=== PATIENT | female | born 1995 | race Caucasian/White ===

== ENCOUNTER 2017-01-14 20:17 | Emergency (ER) | payer MEDICAID ==
[2017-01-14 20:44] VITALS: BP 129/87
[2017-01-14] MEDS ORDERED: IBUPROFEN 800 MG TABLET PO ONE (20:52)
--- NOTE | 2017-01-14 20:56 | ER Document Report ---
HPI - HPI Patient complains to provider of: left ankle pain Onset: Just prior to arrival Onset/Duration: Sudden Quality of pain: Achy, Throbbing Severity: Severe Pain Level: 4 Context: She presents emergency department with complaints of left ankle pain. She reports she stepped off a step and rolled her ankle. Denies foot pain. Denies past medical history of injury to the foot. No other complaints such as fever vomiting diarrhea. Associated Symptoms: None Exacerbated by: Walking Relieved by: Denies Similar symptoms previously: No Recently seen / treated by doctor: No - REPRODUCTIVE Reproductive: DENIES: : Past Medical History - General Information source: Patient Last Menstrual Period: 12/27/2016 - Social History Smoking Status: Unknown if Ever Smoked Cigarette use (# per day): No Frequency of alcohol use: None Drug Abuse: None Family History: Reviewed & Not Pertinent, Other - Colon cancer - Past Medical History Cardiac Medical History: Pulmonary Medical History: Neurological Medical History: GI Medical History: Reports: Hx Gastroesophageal Reflux Disease Traumatic Medical History: Reports: Hx Fractures Infectious Medical History: Past Surgical History: Reports: Hx Abdominal Surgery - reconstructive intestinal surgery, Hx Appendectomy, Hx Bowel Surgery - colectomy after appendectomy, Hx Cholecystectomy, Other - Exploratory laparotomy, control of appendiceal stump leak 2000. - Immunizations Immunizations up to date: Yes Hx Diphtheria, Pertussis, Tetanus Vaccination: Yes Vertical Provider Document - CONSTITUTIONAL Agree With Documented VS: Yes Exam Limitations: No Limitations General Appearance: WD/WN, Mild Distress - Wincing when ankle touched - INFECTION CONTROL TRAVEL OUTSIDE OF THE [place] IN LAST 30 DAYS: No - HEENT HEENT: Atraumatic, Normocephalic - NECK Neck: Normal Inspection, Supple - RESPIRATORY Respiratory: Breath Sounds Normal, No Respiratory Distress O2 Sat by Pulse Oximetry: 100 - CARDIOVASCULAR Cardiovascular: Regular Rate - MUSCULOSKELETAL/EXTREMETIES Musculoskeletal/Extremeties: Tender - Left lateral ankle tender to palpation no obvious deformity slight swelling good pedal pulse and brisk cap refill. - NEURO Level of Consciousness: Awake, Alert, Appropriate Motor/Sensory: No Motor Deficit - DERM Integumentary: Warm, Dry Adult Front & Back Diagram: 1 - Complains of pain Course - Re-evaluation Re-evalutation: 01/14/17 20:55 Patient provided with Motrin for pain and took to x-ray. 01/14/17 22:10 She instructed on negative x-ray Emmanuel wrap and crutches. motrin for the pain - Vital Signs Vital signs: Temp Pulse Resp BP Pulse Ox 97.8 F 85 129/87 H 100 01/14/17 20:41 01/14/17 20:41 01/14/17 20:41 01/14/17 20:41 - Diagnostic Test Radiology reviewed: Image reviewed, Reports reviewed - IMPRESSION: NO RADIOGRAPHIC EVIDENCE OF ACUTE INJURY. Procedures - Immobilization Left Ankle Pre-Proc Neuro Vasc Exam: Normal Immobilizer type: Emmanuel wrap Performed by: RN Post-Proc Neuro Vasc Exam: Unchanged from pre-exam Discharge - Discharge Clinical Impression: Elevated blood pressure reading Ankle pain, left Qualifiers: Chronicity: acute Qualified Code(s): M25.572 - Pain in left ankle and joints of left foot Condition: Stable Disposition: HOME, SELF-CARE Instructions: Use of Crutches ([facility]), Use of Aerv-Pqa-Idbxuyv Ibuprofen ([facility]), Ice & Elevation ([facility]), Emmanuel Wrap ([facility]) Additional Instructions: *You have been evaluated for left ankle pain *Maintain the splint and use the crutches for the next three days *Rest/Ice/Elevate *Follow up with orthopedics for continued pain-call for an appointment *Take ibuprofen as indicated *Monitor your blood pressure. Your blood pressure was elevated today. This may be because you were anxious, in pain or because you need medication. It is important to follow up with your primary care provider for full evaluation. *Return to ED for worsening condition, changes, needs Forms: Elevated Blood Pressure, Return to Work
== END 2017-01-14 22:18 | disposition home or self-care (01) ==
LOC: ER 20:17
DX: M25.572 Pain in left ankle and joints of left foot (principal); M25.472 Effusion, left ankle; X50.0XXA Overexertion from strenuous movement or load, initial encounter; R03.0 Elevated blood-pressure reading, without diagnosis of hypertension
CPT/HCPCS: 99283; 73610; J3490

== ENCOUNTER 2017-04-24 10:32 | Emergency (ER) | payer SELFPAY ==
[2017-04-24] MEDS ORDERED: ONDANSETRON 4 MG TAB.RAPDIS PO ONE (11:01)
[2017-04-24] MEDS ORDERED: HYDROCODONE/ACETAMINOPHEN 5-325 MG TABLET PO ONE (11:01)
--- NOTE | 2017-04-24 11:03 | ER Document Report ---
ED Medical Screen (RME) - General Chief Complaint: Abdominal Pain Stated Complaint: ABDOMINAL PAIN Time Seen by Provider: 04/24/17 10:56 Mode of Arrival: Wheelchair Information source: Patient Notes: Patient presents to the emergency department with left quad abdominal pain. Patient reports pain started a few days ago. She got off work early this morning , tried to sleep but was unable to due to increased pain. She has history of jenny, appendectomy and intestinal resection after the appy. Patient points out swelling to the left quad of her abdomen. TRAVEL OUTSIDE OF THE [place] IN LAST 30 DAYS: No - Related Data Allergies/Adverse Reactions: hydromorphone HCl [From Dilaudid] Allergy (Verified 04/24/17 10:34) difficulty breathing and rash Past Medical History - Past Medical History Cardiac Medical History: Pulmonary Medical History: Neurological Medical History: Renal/ Medical History: Denies: Hx Peritoneal Dialysis GI Medical History: Reports: Hx Gastroesophageal Reflux Disease Traumatic Medical History: Reports: Hx Fractures Infectious Medical History: Past Surgical History: Reports: Hx Abdominal Surgery - reconstructive intestinal surgery, Hx Appendectomy, Hx Bowel Surgery - colectomy after appendectomy, Hx Cholecystectomy, Other - Exploratory laparotomy, control of appendiceal stump leak 2000. - Immunizations Immunizations up to date: Yes Hx Diphtheria, Pertussis, Tetanus Vaccination: Yes Physical Exam - Vital signs Vitals: Temp Pulse Resp BP Pulse Ox 97.7 F 89 16 134/82 H 100 04/24/17 10:34 04/24/17 10:34 04/24/17 10:34 04/24/17 10:34 04/24/17 10:34 Course - Vital Signs Vital signs: Temp Pulse Resp BP Pulse Ox 97.7 F 89 16 134/82 H 100 04/24/17 10:34 04/24/17 10:34 04/24/17 10:34 04/24/17 10:34 04/24/17 10:34
[2017-04-24 12:45] LABS: APPEARANCE,URINE CLEAR; BILIRUBIN,URINE NEGATIVE (NEGATIVE); GLUCOSE, URINE NEGATIVE (NEGATIVE); KETONES,URINE NEGATIVE (NEGATIVE); LEUKOCYTE ESTERASE,URINE NEGATIVE (NEGATIVE); NITRITE,URINE NEGATIVE (NEGATIVE); PROTEIN,URINE NEGATIVE (NEGATIVE); URINE SPECIFIC GRAVITY 1.012; UROBILINOGEN,URINE NEGATIVE mg/dL (<2.0)
[2017-04-24 12:55] LABS: ABSOLUTE EOSINOPHILS # (AUTO) 0.3 10^3/uL (0.0-0.6); ABSOLUTE LYMPHOCYTES (AUTO) 2.7 10^3/uL (0.5-4.7); ABSOLUTE MONOCYTES (AUTO) 0.5 10^3/uL (0.1-1.4); ABSOLUTE NEUT (AUTO) 6.9 10^3/uL (1.7-8.2); BASOPHILS % (AUTO) 0.5 % (0-2); EOSINOPHILS % (AUTO) 2.5 % (0-6); HEMATOCRIT 38.6 % (36.0-47.0); HEMOGLOBIN 12.6 g/dL (12.0-15.5); HGB HCT DIFFERENCE -0.8; LYMPHOCYTES % (AUTO) 25.9 % (13-45); MEAN CORPUSCULAR HEMOGLOBIN 27.2 pg (27.0-33.4); MEAN CORPUSCULAR HGB CONC 32.5 g/dL (32.0-36.0); MEAN CORPUSCULAR VOLUME 84 fl (80-97); RED BLOOD COUNT 4.62 10^6/uL (3.72-5.28); RED CELL DISTRIBUTION WIDTH 13.7 % (11.5-14.0); SEGMENTED NEUTROPHILS % (AUTO) 66.1 % (42-78); WHITE BLOOD COUNT 10.5 10^3/uL (4.0-10.5)
[2017-04-24 13:20] LABS: ALANINE AMINOTRANSFERASE 35 U/L (9-52); ALBUMIN 4.5 g/dL (3.5-5.0); ALKALINE PHOSPHATASE 83 U/L (38-126); ANION GAP 14 (5-19); ASPARTATE AMINO TRANSFERASE 27 U/L (14-36); BILIRUBIN,DIRECT 0.3 mg/dL (0.0-0.4); BILIRUBIN,TOTAL 0.5 mg/dL (0.2-1.3); BLOOD UREA NITROGEN 11 mg/dL (7-20); CALCIUM 9.9 mg/dL (8.4-10.2); CARBON DIOXIDE 22 mmol/L (22-30); CHLORIDE 105 mmol/L (98-107); CREATININE RESULT 0.74 mg/dL (0.52-1.25); GLUCOSE 89 mg/dL (75-110); POTASSIUM 4.6 mmol/L (3.6-5.0); SODIUM 140.5 mmol/L (137-145); TOTAL PROTEIN 8.1 g/dL (6.3-8.2)
[2017-04-24] MEDS ORDERED: ONDANSETRON HCL INJ/PF 4 MG/2 ML SDV IV ONE (15:05)
[2017-04-24] MEDS ORDERED: NORMAL SALINE 1000 ML 1,000 ML IV PRN (15:05)
[2017-04-24] MEDS ORDERED: KETOROLAC TROMETHAMINE INJ/PF 30 MG/1 ML SDV IV ONE (15:05)
--- NOTE | 2017-04-24 15:08 | ER Document Report ---
ED GI/ - General Chief Complaint: Abdominal Pain Stated Complaint: ABDOMINAL PAIN Time Seen by Provider: 04/24/17 10:56 Mode of Arrival: Wheelchair Information source: Patient TRAVEL OUTSIDE OF THE [place] IN LAST 30 DAYS: No - HPI Patient complains to provider of: Abdominal pain Onset: This morning Timing/Duration: Sudden Quality of pain: Achy, Cramping Severity at maximum: Moderate Severity in ED: Moderate Pain Level: 3 Location: Epigastric, LUQ Associated symptoms: Nausea Exacerbated by: Denies Relieved by: Denies Similar symptoms previously: No Recently seen / treated by doctor: No Notes: 04/24/17 15:06 Patient is a 22-year-old female who presents to the emergency room complaining of epigastric and left upper quadrant abdominal pain that has been going on since she woke up this morning, states it feels swollen in her epigastric and left upper quadrant region, pain is associated with nausea vomiting or diarrhea , her last movement was yesterday and normal, she denies any sick contacts, no recent questionable food intake, she does have a history of a cholecystectomy, appendectomy and bowel resection after appendectomy, - Related Data Allergies/Adverse Reactions: hydromorphone HCl [From Dilaudid] Allergy (Verified 04/24/17 10:34) difficulty breathing and rash Past Medical History - General Information source: Patient - Social History Smoking Status: Never Smoker Chew tobacco use (# tins/day): No Frequency of alcohol use: None Drug Abuse: None Family History: Reviewed & Not Pertinent, Other - Colon cancer Patient has suicidal ideation: No Patient has homicidal ideation: No - Past Medical History Cardiac Medical History: Pulmonary Medical History: Neurological Medical History: Renal/ Medical History: Denies: Hx Peritoneal Dialysis GI Medical History: Reports: Hx Gastroesophageal Reflux Disease Traumatic Medical History: Reports: Hx Fractures Infectious Medical History: Past Surgical History: Reports: Hx Abdominal Surgery - reconstructive intestinal surgery, Hx Appendectomy, Hx Bowel Surgery - colectomy after appendectomy, Hx Cholecystectomy, Other - Exploratory laparotomy, control of appendiceal stump leak 2000. - Immunizations Immunizations up to date: Yes Hx Diphtheria, Pertussis, Tetanus Vaccination: Yes Review of Systems - Review of Systems Constitutional: No symptoms reported EENT: No symptoms reported Cardiovascular: No symptoms reported Respiratory: No symptoms reported Gastrointestinal: See HPI Genitourinary: No symptoms reported Female Genitourinary: No symptoms reported Musculoskeletal: No symptoms reported Skin: No symptoms reported Hematologic/Lymphatic: No symptoms reported Neurological/Psychological: No symptoms reported -: Yes All other systems reviewed and negative Physical Exam - Vital signs Vitals: Temp Pulse Resp BP Pulse Ox 97.7 F 89 16 134/82 H 100 04/24/17 10:34 04/24/17 10:34 04/24/17 10:34 04/24/17 10:34 04/24/17 10:34 Interpretation: Normal - General General appearance: Appears well, Alert - HEENT Head: Normocephalic, Atraumatic Eyes: Normal Pupils: PERRL - Respiratory Respiratory status: No respiratory distress Chest status: Nontender Breath sounds: Normal Chest palpation: Normal - Cardiovascular Rhythm: Regular Heart sounds: Normal auscultation Murmur: No - Abdominal Inspection: Normal Distension: No distension Bowel sounds: Normal Tenderness: Tender - epigastric and left upper quadrant tenderness on palpation Organomegaly: No organomegaly - Back Back: Normal, Nontender - Extremities General upper extremity: Normal inspection, Nontender, Normal color, Normal ROM , Normal temperature General lower extremity: Normal inspection, Nontender, Normal color, Normal ROM , Normal temperature, Normal weight bearing. No: Stephanie's sign - Neurological Neuro grossly intact: Yes Cognition: Normal Orientation: AAOx4 [place] Coma Scale Eye Opening: Spontaneous Patti Coma Scale Verbal: Oriented Patti Coma Scale Motor: Obeys Commands [place] Coma Scale Total: 15 Speech: Normal Motor strength normal: LUE, RUE, LLE, RLE Sensory: Normal - Psychological Associated symptoms: Normal affect, Normal mood - Skin Skin Temperature: Warm Skin Moisture: Dry Skin Color: Normal Course - Re-evaluation Re-evalutation: 04/24/17 22:26 Lab and imaging findings were discussed with patient at bedside which are unremarkable, patient was provided with prescriptions for several medications and information for follow-up, was advised to return if symptoms worsen, patient acknowledges understanding and agreement with this plan - Vital Signs Vital signs: Temp Pulse Resp BP Pulse Ox 97.9 F 87 16 126/56 H 97 04/24/17 17:03 04/24/17 17:01 04/24/17 17:01 04/24/17 17:01 04/24/17 17:01 - Laboratory Result Diagrams: 04/24/17 12:28 04/24/17 12:28 Laboratory results interpreted by me: 04/24/17 11:00 Urine Blood SMALL H - Diagnostic Test Radiology reviewed: Image reviewed, Reports reviewed Discharge - Discharge Clinical Impression: Abdominal pain Qualifiers: Abdominal location: upper abdomen, unspecified Qualified Code(s): R10.10 - Upper abdominal pain, unspecified Condition: Stable Disposition: HOME, SELF-CARE Instructions: Abdominal Pain ([facility]) Additional Instructions: Follow up with your primary care provider in one to 2 days. Return to the emergency room immediately if symptoms worsen or any additional concerns. Prescriptions: Famotidine [Pepcid 20 mg Tablet] 20 mg PO BID #12 tablet Hydrocodone/Acetaminophen [Hydrocodon-Acetaminophen 5-325] 1 each PO Q6 #10 tablet Ondansetron HCl [Zofran 4 mg Tablet] 1 - 2 tab PO Q4H PRN #10 tablet PRN Reason: Forms: Return to Work Referrals: LUIZA THOMAS CNM [Primary Care Provider] - Follow up as needed
--- NOTE | 2017-04-24 15:37 | RADIOLOGY REPORT (SQ) ---
EXAM DESCRIPTION: U/S ABDOMEN LIMITED W/O DOP COMPLETED DATE/TIME: 04/24/2017 2:03 pm REASON FOR STUDY: abd pain, swelling, hernia? COMPARISON: None. TECHNIQUE: Dynamic and static grayscale images acquired of the abdomen and recorded on PACS. Additio nal selected color Doppler and spectral images recorded. LIMITATIONS: None. FINDINGS: Limited sonographic imaging was performed of the area of the incision for the patient's pr ior cholecystectomy. This is above the umbilicus. No incisional hernia was identified. No fluid co llections were present. IMPRESSION: Normal limited ultrasound. TECHNICAL DOCUMENTATION: JOB ID: [id number] [employer]- All Rights Reserved
--- NOTE | 2017-04-24 16:30 | RADIOLOGY REPORT (SQ) ---
EXAM DESCRIPTION: CT ABD/PELVIS WITH IV ONLY COMPLETED DATE/TIME: 04/24/2017 3:48 pm REASON FOR STUDY: abd pain COMPARISON: None. TECHNIQUE: CT scan of the abdomen and pelvis performed using helical scanning technique with dynamic intravenous contrast injection. No oral contrast. Images reviewed with lung, soft tissue, and bone windows. Reconstructed coronal and sagittal MPR images reviewed. Delayed images for evaluation of the urinary system also acquired. All images stored on PACS. All CT scanners at this facility use dose modulation, iterative reconstruction, and/or weight based d osing when appropriate to reduce radiation dose to as low as reasonably achievable (ALARA). [facility]: Dose Right [facility]: CareDose [facility]: Dose Right [facility]: Teradose 4D [facility]: Architurn CONTRAST TYPE AND DOSE: 100mL Isovue 370- low osmolar. RENAL FUNCTION: Creatinine 0.7 BUN 11 RADIATION DOSE: 40.98mGy. LIMITATIONS: None. FINDINGS: LOWER CHEST: No significant findings. No nodules or infiltrates. LIVER: Normal size. No masses or dilated ducts. SPLEEN: Normal size. No focal lesions. PANCREAS: No masses. No significant calcifications. No adjacent inflammation or peripancreatic fluid collections. Pancreatic duct not dilated. GALLBLADDER: Surgically absent. ADRENAL GLANDS: No significant masses or asymmetry. RIGHT KIDNEY AND URETER: No solid masses. No significant calcifications. No hydronephrosis or hyd roureter. LEFT KIDNEY AND URETER: No solid masses. No significant calcifications. No hydronephrosis or hydr oureter. AORTA AND VESSELS: No aneurysm. No dissection. Renal arteries, SMA, celiac without stenosis. RETROPERITONEUM: No retroperitoneal adenopathy, hemorrhage or masses. BOWEL AND PERITONEAL CAVITY: No masses or inflammatory changes. No free fluid or peritoneal masses. APPENDIX: Surgically absent. PELVIS: No mass or free fluid. Normal bladder. ABDOMINAL WALL: No masses. No hernias. BONES: No significant or acute findings. OTHER: No other significant finding. IMPRESSION: NO SIGNIFICANT OR ACUTE FINDING IN THE ABDOMEN OR PELVIS ON CT SCAN WITH IV CONTRAST. TECHNICAL DOCUMENTATION: JOB ID: [id number] Quality ID # [id number]: Final reports with documentation of one or more dose reduction techniques (e.g., Au tomated exposure control, adjustment of the mA and/or kV according to patient size, use of iterative reconstruction technique) 2010 [employer]- All Rights Reserved
[2017-04-24 17:04] VITALS: BP 126/56
== END 2017-04-24 17:17 | disposition home or self-care (01) ==
LOC: ER 10:32
DX: R10.10 Upper abdominal pain, unspecified (principal); R10.13 Epigastric pain; Z90.49 Acquired absence of other specified parts of digestive tract
CPT/HCPCS: 99284; 96361; 96374; 96375; 36415; 83690; 84703; 85025; 80053; 81001; 76705; 74177; S0119; J1885; J2405; J7030

== ENCOUNTER 2017-06-08 16:00 | Emergency (ER) | payer SELFPAY ==
[2017-06-08 16:11] VITALS: BP 131/79
--- NOTE | 2017-06-08 16:49 | ER Document Report ---
HPI - HPI Pain Level: 3 Context: 22 yo healthy female c/o itchy, scratchy throat, cough x 3-4 days. has felt dizzy and fatigue Associated Symptoms: Allergy/hay fever, Nonproductive cough Exacerbated by: Denies Relieved by: Denies Similar symptoms previously: No Recently seen / treated by doctor: No - REPRODUCTIVE Reproductive: DENIES: : - DERM Skin Color: Normal Past Medical History - General Information source: Patient - Social History Smoking Status: Never Smoker Frequency of alcohol use: None Drug Abuse: None Lives with: Family Family History: Reviewed & Not Pertinent, Other - Colon cancer - Medical History Medical History: Negative - Past Medical History Cardiac Medical History: Pulmonary Medical History: Neurological Medical History: Renal/ Medical History: Denies: Hx Peritoneal Dialysis GI Medical History: Reports: Hx Gastroesophageal Reflux Disease Traumatic Medical History: Reports: Hx Fractures Infectious Medical History: Past Surgical History: Reports: Hx Abdominal Surgery - reconstructive intestinal surgery, Hx Appendectomy, Hx Bowel Surgery - colectomy after appendectomy, Hx Cholecystectomy, Other - Exploratory laparotomy, control of appendiceal stump leak 2000. - Immunizations Immunizations up to date: Yes Hx Diphtheria, Pertussis, Tetanus Vaccination: Yes Vertical Provider Document - CONSTITUTIONAL Agree With Documented VS: Yes Exam Limitations: No Limitations General Appearance: WD/WN, No Apparent Distress - INFECTION CONTROL TRAVEL OUTSIDE OF THE [place] IN LAST 30 DAYS: No - HEENT HEENT: Atraumatic, Pharyngeal Tenderness, Pharyngeal Erythema. negative: Pharyngeal Exudate - NECK Neck: Normal Inspection, Supple - RESPIRATORY Respiratory: Breath Sounds Normal, No Respiratory Distress O2 Sat by Pulse Oximetry: 100 - CARDIOVASCULAR Cardiovascular: Regular Rate, Regular Rhythm - GI/ABDOMEN Gastrointestinal: Abdomen Soft, Abdomen Non-Tender - BACK Back: Normal Inspection - MUSCULOSKELETAL/EXTREMETIES Musculoskeletal/Extremeties: MARISOL LEE - NEURO Level of Consciousness: Awake, Alert, Appropriate - DERM Integumentary: Warm, Dry Course - Re-evaluation Re-evalutation: 06/08/17 16:49 H&P c/w allergic rhinitis and viral illness. pt is hemodynamically stable. stable for discharge and follow up with primary care. pt agreeable with plan - Vital Signs Vital signs: Temp Pulse Resp BP Pulse Ox 97.6 F 87 16 131/79 H 100 06/08/17 16:06 06/08/17 16:06 06/08/17 16:06 06/08/17 16:06 06/08/17 16:06 Discharge - Discharge Clinical Impression: Viral illness Allergic rhinitis Qualifiers: Chronicity: acute Allergic rhinitis seasonality: unspecified seasonality Condition: Stable Disposition: HOME, SELF-CARE Instructions: Use of Diphenhydramine, Nasal Corticosteroid Inhaler ([facility]), Hay Fever ([facility]), Sore Throat ([facility]), Viral Syndrome ([facility]) Additional Instructions: Your history and physical are consistent with allergic rhinitis and viral illness take medications as directed follow up with primary care if symptoms persist Prescriptions: Benzonatate [Tessalon Perle 100 mg Capsule] 200 mg PO Q8HP PRN #40 cap PRN Reason: Fluticasone Propionate [Flonase Allergy Relief] 2 spr NS DAILY #1 bottle Forms: Return to Work
== END 2017-06-08 17:08 | disposition home or self-care (01) ==
LOC: ER 16:00
DX: J30.9 Allergic rhinitis, unspecified (principal); B34.9 Viral infection, unspecified; J30.1 Allergic rhinitis due to pollen; R42 Dizziness and giddiness; R53.83 Other fatigue; R05 Cough
CPT/HCPCS: 99282

== ENCOUNTER 2017-06-27 12:28 | Emergency (ER) | payer SELFPAY ==
[2017-06-27 12:34] VITALS: BP 130/83
--- NOTE | 2017-06-27 12:44 | ER Document Report ---
ED Medical Screen (RME) - General Chief Complaint: Vaginal Bleeding Stated Complaint: ABDOMINAL PAIN Time Seen by Provider: 06/27/17 12:42 Mode of Arrival: Ambulatory Information source: Patient Notes: This is a 22-year-old female who is 4 para 2 (1 miscarriage in the past) , positive home test 2 weeks ago who presents to the emergency room with acute development of vaginal bleeding, abdominal cramping and pain. Patient's symptoms started at 3 AM. Allergies: Dilaudid Medicines: None Past surgical history: Appendectomy, cholecystectomy, partial bowel resection ( complication of the appendicitis) Obstetric history gravida4 para 2, blood type Rh- (has received RhoGam in the past) TRAVEL OUTSIDE OF THE [place] IN LAST 30 DAYS: No - Related Data Allergies/Adverse Reactions: hydromorphone HCl [From Dilaudid] Allergy (Verified 06/27/17 12:34) difficulty breathing and rash Past Medical History - Past Medical History Cardiac Medical History: Pulmonary Medical History: Neurological Medical History: Renal/ Medical History: Denies: Hx Peritoneal Dialysis GI Medical History: Reports: Hx Gastroesophageal Reflux Disease Traumatic Medical History: Reports: Hx Fractures Infectious Medical History: Past Surgical History: Reports: Hx Abdominal Surgery - reconstructive intestinal surgery, Hx Appendectomy, Hx Bowel Surgery - colectomy after appendectomy, Hx Cholecystectomy, Other - Exploratory laparotomy, control of appendiceal stump leak 2000. - Immunizations Immunizations up to date: Yes Hx Diphtheria, Pertussis, Tetanus Vaccination: Yes Physical Exam - Vital signs Vitals: Temp Pulse Resp BP Pulse Ox 98.2 F 88 16 130/83 H 100 06/27/17 12:31 06/27/17 12:31 06/27/17 12:31 06/27/17 12:31 06/27/17 12:31 Course - Vital Signs Vital signs: Temp Pulse Resp BP Pulse Ox 98.2 F 88 16 130/83 H 100 06/27/17 12:31 06/27/17 12:31 06/27/17 12:31 06/27/17 12:31 06/27/17 12:31
[2017-06-27] MEDS ORDERED: ACETAMINOPHEN 325 MG TABLET PO ONE (13:41)
--- NOTE | 2017-06-27 13:42 | ER Document Report ---
ED GI/ - General Chief Complaint: Vaginal Bleeding Stated Complaint: ABDOMINAL PAIN Time Seen by Provider: 06/27/17 12:42 Mode of Arrival: Ambulatory Notes: 22-year-old female complaining of pain since over 0300. She woke up at 0700 vaginal bleeding. She had a positive home test 2 weeks ago, LMP April 8. . TRAVEL OUTSIDE OF THE [place] IN LAST 30 DAYS: No - Related Data Allergies/Adverse Reactions: hydromorphone HCl [From Dilaudid] Allergy (Verified 06/27/17 12:34) difficulty breathing and rash Past Medical History - General Information source: Patient Last Menstrual Period: 05/01/2017 - Social History Smoking Status: Never Smoker Chew tobacco use (# tins/day): No Frequency of alcohol use: None Drug Abuse: None Family History: Reviewed & Not Pertinent, Other - Colon cancer - Past Medical History Cardiac Medical History: Pulmonary Medical History: Neurological Medical History: Renal/ Medical History: Denies: Hx Peritoneal Dialysis GI Medical History: Reports: Hx Gastroesophageal Reflux Disease Traumatic Medical History: Reports: Hx Fractures Infectious Medical History: Past Surgical History: Reports: Hx Abdominal Surgery - reconstructive intestinal surgery, Hx Appendectomy, Hx Bowel Surgery - colectomy after appendectomy, Hx Cholecystectomy, Other - Exploratory laparotomy, control of appendiceal stump leak 2000. - Immunizations Immunizations up to date: Yes Hx Diphtheria, Pertussis, Tetanus Vaccination: Yes Review of Systems - Review of Systems Constitutional: No symptoms reported EENT: No symptoms reported Cardiovascular: No symptoms reported Respiratory: No symptoms reported Gastrointestinal: No symptoms reported Genitourinary: No symptoms reported Female Genitourinary: See HPI Musculoskeletal: No symptoms reported Skin: No symptoms reported Hematologic/Lymphatic: No symptoms reported Neurological/Psychological: No symptoms reported Physical Exam - Vital signs Vitals: Temp Pulse Resp BP Pulse Ox 98.2 F 88 16 130/83 H 100 06/27/17 12:31 06/27/17 12:31 06/27/17 12:31 06/27/17 12:31 06/27/17 12:31 Interpretation: Normal - General General appearance: Appears well, Alert - HEENT Head: Normocephalic, Atraumatic Eyes: Normal Pupils: PERRL Neck: Supple. No: Lymphadenopathy, Thyromegally - Respiratory Respiratory status: No respiratory distress Chest status: Nontender Breath sounds: Normal Chest palpation: Normal - Cardiovascular Rhythm: Regular Heart sounds: Normal auscultation Murmur: No - Abdominal Inspection: Normal Distension: No distension Bowel sounds: Normal Tenderness: Nontender. No: Tender Organomegaly: No organomegaly - Back Back: Normal, Nontender. No: CVA tenderness - Extremities General upper extremity: Normal inspection, Nontender, Normal color, Normal ROM , Normal temperature General lower extremity: Normal inspection, Nontender, Normal color, Normal ROM , Normal temperature, Normal weight bearing. No: Stephanie's sign - Neurological Neuro grossly intact: Yes Cognition: Normal Orientation: AAOx4 Patti Coma Scale Eye Opening: Spontaneous [place] Coma Scale Verbal: Oriented Patti Coma Scale Motor: Obeys Commands Patti Coma Scale Total: 15 Speech: Normal Motor strength normal: LUE, RUE, LLE, RLE Sensory: Normal - Psychological Associated symptoms: Normal affect, Normal mood - Skin Skin Temperature: Warm Skin Moisture: Dry Skin Color: Normal Course - Re-evaluation Re-evalutation: 06/27/17 15:24 test is negative, other labs OK. explained this to pt that she was not . - Vital Signs Vital signs: Temp Pulse Resp BP Pulse Ox 98.2 F 88 12 130/83 H 100 06/27/17 12:31 06/27/17 12:31 06/27/17 12:38 06/27/17 12:31 06/27/17 12:31 - Laboratory Result Diagrams: 06/27/17 14:13 06/27/17 14:13 Laboratory results interpreted by me: 06/27/17 14:13 RDW 14.5 H Discharge - Discharge Clinical Impression: Vaginal bleeding, Pelvic cramping Condition: Good Disposition: HOME, SELF-CARE Instructions: Vaginal Bleeding ([facility]) Additional Instructions: see the health department as planned copy of labs given to you to er any concerns Please complete the patient satisfaction survey if you get one, and return it.. If you do not receive a survey, then you can go to the [facility] website, [email or web address] and place your comments about your very good care. Thank you very much. It was a pleasure being your medical provider today. Referrals: LUIZA THOMAS CNM [Primary Care Provider] - Follow up as needed
[2017-06-27 14:30] LABS: ABSOLUTE EOSINOPHILS # (AUTO) 0.1 10^3/uL (0.0-0.6); ABSOLUTE LYMPHOCYTES (AUTO) 2.8 10^3/uL (0.5-4.7); ABSOLUTE MONOCYTES (AUTO) 0.7 10^3/uL (0.1-1.4); EOSINOPHILS % (AUTO) 1.3 % (0-6)
[2017-06-27 14:32] LABS: ABSOLUTE NEUT (AUTO) 5.4 10^3/uL (1.7-8.2); BASOPHILS % (AUTO) 0.5 % (0-2); HEMATOCRIT 37.1 % (36.0-47.0); HEMOGLOBIN 12.3 g/dL (12.0-15.5); HGB HCT DIFFERENCE -0.2; LYMPHOCYTES % (AUTO) 31.2 % (13-45); MEAN CORPUSCULAR HEMOGLOBIN 27.8 pg (27.0-33.4); MEAN CORPUSCULAR HGB CONC 33.1 g/dL (32.0-36.0); MEAN CORPUSCULAR VOLUME 84 fl (80-97); MONOCYTES % (AUTO) 7.3 % (3-13); RED BLOOD COUNT 4.41 10^6/uL (3.72-5.28); RED CELL DISTRIBUTION WIDTH 14.5 % (11.5-14.0); SEGMENTED NEUTROPHILS % (AUTO) 59.7 % (42-78); WHITE BLOOD COUNT 9.1 10^3/uL (4.0-10.5)
[2017-06-27 14:45] LABS: ALANINE AMINOTRANSFERASE 35 U/L (9-52); ALBUMIN 4.4 g/dL (3.5-5.0); ALKALINE PHOSPHATASE 82 U/L (38-126); ANION GAP 12 (5-19); ASPARTATE AMINO TRANSFERASE 31 U/L (14-36); BILIRUBIN,DIRECT 0.3 mg/dL (0.0-0.4); BILIRUBIN,TOTAL 0.4 mg/dL (0.2-1.3); BLOOD UREA NITROGEN 8 mg/dL (7-20); CALCIUM 9.2 mg/dL (8.4-10.2); CARBON DIOXIDE 23 mmol/L (22-30); CHLORIDE 106 mmol/L (98-107); CREATININE RESULT 0.67 mg/dL (0.52-1.25); GLUCOSE 95 mg/dL (75-110); POTASSIUM 4.1 mmol/L (3.6-5.0); SODIUM 140.8 mmol/L (137-145); TOTAL PROTEIN 7.8 g/dL (6.3-8.2)
== END 2017-06-27 15:36 | disposition home or self-care (01) ==
LOC: ER 12:28
DX: N93.9 Abnormal uterine and vaginal bleeding, unspecified (principal); R10.2 Pelvic and perineal pain; Z32.02 Encounter for pregnancy test, result negative; Z90.49 Acquired absence of other specified parts of digestive tract; Z88.5 Allergy status to narcotic agent
CPT/HCPCS: 36415; 80053; 84702; 85025; 86900; 86901; 99284

== ENCOUNTER 2018-06-22 11:45 | Emergency (ER) | payer MEDICAID ==
[2018-06-22] MEDS ORDERED: ONDANSETRON 4 MG TAB.RAPDIS PO ONE (11:59)
[2018-06-22] MEDS ORDERED: NORMAL SALINE 1000 ML 1,000 ML IV PRN (11:59)
[2018-06-22] MEDS ORDERED: FENTANYL CITRATE INJ/PF 100 MCG/2 ML AMPUL IV ONE (11:59)
--- NOTE | 2018-06-22 12:01 | ER Document Report ---
ED Medical Screen (RME) - General Chief Complaint: Vag Bleeding, +preg <12wks Stated Complaint: ABDOMINAL PAIN, VAGINAL BLEEDING Time Seen by Provider: 06/22/18 11:58 Notes: 23 years old female who is 10 weeks presents today with lower abdominal pain and cramps since this morning. And also started bleeding per vagina. She has 4 pregnancies, one miscarriage to live . Denies any fever chills but had nausea no vomiting. Denies any diarrhea dysuria frequency urgency. TRAVEL OUTSIDE OF THE [place] IN LAST 30 DAYS: No - Related Data Allergies/Adverse Reactions: hydromorphone HCl [From Dilaudid] Allergy (Verified 06/22/18 11:45) difficulty breathing and rash Past Medical History - Social History Chew tobacco use (# tins/day): No Frequency of alcohol use: None Drug Abuse: None - Past Medical History Cardiac Medical History: Pulmonary Medical History: Neurological Medical History: Renal/ Medical History: Denies: Hx Peritoneal Dialysis GI Medical History: Reports: Hx Gastroesophageal Reflux Disease Traumatic Medical History: Reports: Hx Fractures Infectious Medical History: Past Surgical History: Reports: Hx Abdominal Surgery - reconstructive intestinal surgery, Hx Appendectomy, Hx Bowel Surgery - colectomy after appendectomy, Hx Cholecystectomy, Other - Exploratory laparotomy, control of appendiceal stump leak 2000. - Immunizations Immunizations up to date: Yes Hx Diphtheria, Pertussis, Tetanus Vaccination: Yes Physical Exam - Vital signs Vitals: Temp Pulse Resp BP Pulse Ox 97.9 F 86 16 136/78 H 98 06/22/18 11:49 06/22/18 11:49 06/22/18 11:49 06/22/18 11:49 06/22/18 11:49 Course - Vital Signs Vital signs: Temp Pulse Resp BP Pulse Ox 97.9 F 86 16 136/78 H 98 06/22/18 11:49 06/22/18 11:49 06/22/18 11:49 06/22/18 11:49 06/22/18 11:49 Doctor's Discharge - Discharge Referrals: LUIZA THOMAS CNM [Primary Care Provider] - Follow up as needed
--- NOTE | 2018-06-22 12:19 | ER Document Report ---
ED GI/ - General Chief Complaint: Vag Bleeding, +preg <12wks Stated Complaint: ABDOMINAL PAIN, VAGINAL BLEEDING Time Seen by Provider: 06/22/18 11:58 Mode of Arrival: Ambulatory Information source: Patient Notes: 23-year-old is complaining of vaginal spotting last night. She only noticed it when she wiped after urination. She also is complaining of left flank pain and suprapubic cramping. She is seen the health department but not had an ultrasound yet. Thinks she is 10 weeks . She knows that she is Rh-. She has been vomiting for a week. No symptoms of a urinary tract infection. No fever or chills. TRAVEL OUTSIDE OF THE [place] IN LAST 30 DAYS: No - Related Data Allergies/Adverse Reactions: hydromorphone HCl [From Dilaudid] Allergy (Verified 06/22/18 11:45) difficulty breathing and rash Past Medical History - General Information source: Patient - Social History Smoking Status: Never Smoker Chew tobacco use (# tins/day): No Frequency of alcohol use: None Drug Abuse: None Lives with: Family Family History: Reviewed & Not Pertinent, Other - Colon cancer Patient has suicidal ideation: No Patient has homicidal ideation: No - Medical History Notes: Obese - Past Medical History Cardiac Medical History: Pulmonary Medical History: Neurological Medical History: Renal/ Medical History: Denies: Hx Peritoneal Dialysis GI Medical History: Reports: Hx Gastroesophageal Reflux Disease Traumatic Medical History: Reports: Hx Fractures Infectious Medical History: Past Surgical History: Reports: Hx Abdominal Surgery - reconstructive intestinal surgery, Hx Appendectomy, Hx Bowel Surgery - colectomy after appendectomy, Hx Cholecystectomy, Other - Exploratory laparotomy, control of appendiceal stump leak 2000. - Immunizations Immunizations up to date: Yes Hx Diphtheria, Pertussis, Tetanus Vaccination: Yes Review of Systems - Review of Systems Constitutional: No symptoms reported EENT: No symptoms reported Cardiovascular: No symptoms reported Respiratory: No symptoms reported Gastrointestinal: No symptoms reported Genitourinary: No symptoms reported Female Genitourinary: See HPI Musculoskeletal: No symptoms reported Skin: No symptoms reported Hematologic/Lymphatic: No symptoms reported Neurological/Psychological: No symptoms reported Physical Exam - Vital signs Vitals: Temp Pulse Resp BP Pulse Ox 97.9 F 86 16 136/78 H 98 06/22/18 11:49 06/22/18 11:49 06/22/18 11:49 06/22/18 11:49 06/22/18 11:49 Interpretation: Normal - General General appearance: Appears well, Alert - HEENT Head: Normocephalic, Atraumatic Eyes: Normal Conjunctiva: Normal Pupils: PERRL - Respiratory Respiratory status: No respiratory distress Chest status: Nontender Breath sounds: Normal Chest palpation: Normal - Cardiovascular Rhythm: Regular Heart sounds: Normal auscultation Murmur: No - Abdominal Inspection: Normal Distension: No distension Bowel sounds: Normal Tenderness: Nontender. No: Tender Organomegaly: No organomegaly - Genitourinary External exam: Normal Speculum exam: Normal, Cervix closed Vaginal bleeding: None Bimanuel exam: No: Cervical motion tender - Back Back: Normal, CVA tenderness - Left - Extremities General upper extremity: Normal inspection, Nontender, Normal color, Normal ROM , Normal temperature General lower extremity: Normal inspection, Nontender, Normal color, Normal ROM , Normal temperature, Normal weight bearing. No: Stephanie's sign - Neurological Neuro grossly intact: Yes Cognition: Normal Orientation: AAOx4 [place] Coma Scale Eye Opening: Spontaneous Patti Coma Scale Verbal: Oriented [place] Coma Scale Motor: Obeys Commands [place] Coma Scale Total: 15 Speech: Normal Motor strength normal: LUE, RUE, LLE, RLE Sensory: Normal - Psychological Associated symptoms: Normal affect, Normal mood - Skin Skin Temperature: Warm Skin Moisture: Dry Skin Color: Normal Skin irregularity: negative: Rash Course - Re-evaluation Re-evalutation: 06/22/18 14:27 Ultrasound shows 6 week 4 day viable IUP with a small subchorionic hemorrhage which I explained to the patient. Since she had spotting last night and her Rh is negative I will infused the RhoGam. still nauseated. no urge to void. adding another liter of fluid and reglan for nausea 06/22/18 22:19 chlamydia is positive, will call pt in the morning for tx can call in azithromycin. - Vital Signs Vital signs: Temp Pulse Resp BP Pulse Ox 97.8 F 85 20 129/74 H 98 06/22/18 15:40 06/22/18 15:40 06/22/18 15:40 06/22/18 15:40 06/22/18 15:40 - Laboratory Result Diagrams: 06/22/18 12:18 Laboratory results interpreted by me: 06/22/18 06/22/18 06/22/18 12:18 12:18 12:18 RDW 14.7 H Beta HCG, Quant 36079.00 H Urine Blood SMALL H Ur Leukocyte Esterase SMALL H Chlamydia DNA (PCR) 06/22/18 14:30 RDW Beta HCG, Quant Urine Blood Ur Leukocyte Esterase Chlamydia DNA (PCR) DETECTED H Discharge - Discharge Clinical Impression: 6 week 4 day viable IUP, Subchorionic bleed, Rh- RhoGam given, Bleeding in early Nausea and vomiting Qualifiers: Vomiting type: unspecified Vomiting Intractability: non-intractable Qualified Code(s): R11.2 - Nausea with vomiting, unspecified Condition: Good Disposition: HOME, SELF-CARE Instructions: Antinausea Medication ([facility]), Bleeding During Early ([facility] ), Intravenous (IV) Fluids ([facility]), [facility] Department, Vomiting ([facility] ), [facility] ([facility]) Additional Instructions: See the health department this week PARTS CATALOGUER referral 2 diet Moose at night will help with the nausea You are 6 weeks 4 days Return to the emergency room for increased pain, bleeding, vomiting Prescriptions: Doxylamine Succinate/Vit B6 [Sanjana Moseley 10-10 mg Tablet] 2 each PO QHS #60 tablet. Referrals: LUIZA THOMAS CNM [Primary Care Provider] - Follow up as needed
[2018-06-22 12:34] LABS: ABSOLUTE LYMPHOCYTES (AUTO) 1.7 10^3/uL (0.5-4.7); ABSOLUTE MONOCYTES (AUTO) 0.5 10^3/uL (0.1-1.4); BASOPHILS % (AUTO) 0.5 % (0-2); EOSINOPHILS % (AUTO) 0.4 % (0-6); HEMATOCRIT 37.4 % (36.0-47.0); HEMOGLOBIN 12.5 g/dL (12.0-15.5); LYMPHOCYTES % (AUTO) 20.7 % (13-45); MEAN CORPUSCULAR HGB CONC 33.4 g/dL (32.0-36.0); MEAN CORPUSCULAR VOLUME 84 fl (80-97); MONOCYTES % (AUTO) 5.8 % (3-13); PLATELET COUNT 281 10^3/uL (150-450); RED BLOOD COUNT 4.47 10^6/uL (3.72-5.28); RED CELL DISTRIBUTION WIDTH 14.7 % (11.5-14.0); SEGMENTED NEUTROPHILS % (AUTO) 72.6 % (42-78); TOTAL CELLS COUNTED % (AUTO) 100 %; WHITE BLOOD COUNT 8.3 10^3/uL (4.0-10.5)
[2018-06-22 12:47] LABS: APPEARANCE,URINE SLIGHTLY-CLOUDY; BILIRUBIN,URINE NEGATIVE (NEGATIVE); COLOR,URINE YELLOW; GLUCOSE, URINE NEGATIVE (NEGATIVE); KETONES,URINE NEGATIVE (NEGATIVE); LEUKOCYTE ESTERASE,URINE SMALL (NEGATIVE); NITRITE,URINE NEGATIVE (NEGATIVE); PROTEIN,URINE NEGATIVE (NEGATIVE); URINE SPECIFIC GRAVITY 1.017; UROBILINOGEN,URINE NEGATIVE mg/dL (<2.0)
--- NOTE | 2018-06-22 14:07 | RADIOLOGY REPORT (SQ) ---
EXAM DESCRIPTION: U/S OB TRANSVAG W/DOPPLER COMPLETED DATE/TIME: 06/22/2018 1:55 pm REASON FOR STUDY: and bleeding COMPARISON: None. TECHNIQUE: Transvaginal static and realtime grayscale images acquired of the pelvis. Additional vinh cted spectral and color Doppler images recorded. All images stored on PACs. bHCG: Not available. CLINICAL DATES: Not Available. LIMITATIONS: None. FINDINGS: FETUS: Living intrauterine . ULTRASOUND EGA: 6 week 4 day. ULTRASOUND NATALYA: 02/11/2019. CRL: 6.9 mm. FHR: 131 beats per minute. SUBCHORIONIC BLEED: Yes. SIZE OF BLEED: 4.7 mm. UTERUS: No masses. No anomalies. CERVICAL LENGTH: 2.6 cm. Closed. RIGHT ADNEXA: Ovary not identified. No adnexal free fluid. No adnexal masses. LEFT ADNEXA: Normal ovary with normal vascular flow. No adnexal free fluid. No adnexal masses. FREE FLUID: None. OTHER: No other significant finding. IMPRESSION: LIVING INTRAUTERINE . EGA 6 WEEK 4 DAY. SMALL 4.7 MM SUBCHORIONIC BLEED. Trimester of : First - 0 to 13 weeks. TECHNICAL DOCUMENTATION: JOB ID: [id number] [employer] All Rights Reserved rev Reading location - IP/workstation name: [email or web address]
[2018-06-22] MEDS ORDERED: NORMAL SALINE 1000 ML 1,000 ML IV ONE (14:27)
[2018-06-22] MEDS ORDERED: METOCLOPRAMIDE HCL INJ/PF 10 MG/2 ML SDV IV ONE (14:27)
[2018-06-22 14:45] LABS: T.VAGINALIS (WET MOUNT) NO TRICHOMONAS SEEN; WBCS (WET MOUNT) 2+ WBCS SEEN; YEAST (WET MOUNT) NO YEAST SEEN
[2018-06-22 14:46] LABS: RBCS (WET MOUNT) 2+ RBCS SEEN
[2018-06-22 15:42] VITALS: BP 129/74
[2018-06-22 16:14] LABS: CHLAM PCR DETECTED (NOT DETECT); GON PCR NOT DETECTED (NOT DETECT)
== END 2018-06-22 15:42 | disposition home or self-care (01) ==
LOC: ER 11:45
DX: O20.8 Other hemorrhage in early pregnancy (principal); O98.311 Other infections with a predominantly sexual mode of transmission complicating pregnancy, first trimester; A56.8 Sexually transmitted chlamydial infection of other sites; O21.8 Other vomiting complicating pregnancy; O36.0910 Maternal care for other rhesus isoimmunization, first trimester, not applicable or unspecified; Z3A.01 Less than 8 weeks gestation of pregnancy; O26.891 Other specified pregnancy related conditions, first trimester; Z88.5 Allergy status to narcotic agent
CPT/HCPCS: 99284; 96372; 96360; 86900; 86901; 36415; 87086; 87210; 86850; 84702; 85025; 81001; 87491; 87591; 76817; 93976; J2790; S0119; J7030

== ENCOUNTER 2020-01-13 20:15 | Emergency (ER) | payer OTHER, MEDICAID ==
--- NOTE | 2020-01-13 20:43 | ER Document Report ---
ED Medical Screen (RME) - General Chief Complaint: Abdominal Pain Stated Complaint: ABDOMINAL PAIN/ Time Seen by Provider: 01/13/20 20:41 Primary Care Provider: LUIZA THOMAS CNM [Primary Care Provider] - Follow up as needed TRAVEL OUTSIDE OF THE [place] IN LAST 30 DAYS: No - HPI Notes: 01/13/20 20:43 Patient is a 24-year-old female G5, P2 approximate 6-week female who presents complaining of severe left lower pelvic pain over the past couple days. Patient does have typical nausea with this otherwise. She has not had any vaginal bleeding, odor, or discharge. She has not had any ultrasound during this as of yet. No fever. I have treated and performed a rapid initial assessment of this patient. A comprehensive ED assessment and evaluation of the patient, analysis of test results and completion of medical decision making process will be conducted by additional ED providers. PHYSICAL EXAMINATION: GENERAL: Well-appearing, well-nourished and in no acute distress. A&Ox4. Answers questions appropriately. Abdomen: Limited exam in triage, there is tenderness to left lower pelvic. - Related Data Allergies/Adverse Reactions: hydromorphone HCl [From Dilaudid] Allergy (Verified 01/13/20 20:28) difficulty breathing and rash Past Medical History - Social History Chew tobacco use (# tins/day): No Frequency of alcohol use: None Drug Abuse: None - Past Medical History Cardiac Medical History: Pulmonary Medical History: Neurological Medical History: Renal/ Medical History: Denies: Hx Peritoneal Dialysis GI Medical History: Reports: Hx Gastroesophageal Reflux Disease Traumatic Medical History: Reports: Hx Fractures Infectious Medical History: Past Surgical History: Reports: Hx Abdominal Surgery - reconstructive intestinal surgery, Hx Appendectomy, Hx Bowel Surgery - colectomy after appendectomy, Hx Cholecystectomy, Other - Exploratory laparotomy, control of appendiceal stump leak 2000. - Immunizations Immunizations up to date: Yes Hx Diphtheria, Pertussis, Tetanus Vaccination: Yes Physical Exam - Vital signs Vitals: Temp Pulse Resp BP Pulse Ox 97.8 F 75 18 150/88 H 100 01/13/20 20:20 01/13/20 20:20 01/13/20 20:20 01/13/20 20:20 01/13/20 20:20 Course - Vital Signs Vital signs: Temp Pulse Resp BP Pulse Ox 97.8 F 75 18 150/88 H 100 01/13/20 20:20 01/13/20 20:20 01/13/20 20:20 01/13/20 20:20 01/13/20 20:20 Doctor's Discharge - Discharge Referrals: LUIZA THOMAS CNM [Primary Care Provider] - Follow up as needed
[2020-01-13] MEDS ORDERED: METOCLOPRAMIDE HCL 10 MG TABLET PO ONE (21:00)
[2020-01-13] MEDS ORDERED: ACETAMINOPHEN 325 MG TABLET PO ONE (21:00)
[2020-01-13 21:32] LABS: APPEARANCE,URINE SLIGHTLY-CLOUDY; BILIRUBIN,URINE NEGATIVE (NEGATIVE); COLOR,URINE YELLOW; GLUCOSE, URINE NEGATIVE (NEGATIVE); KETONES,URINE NEGATIVE (NEGATIVE); PROTEIN,URINE NEGATIVE (NEGATIVE); URINE SPECIFIC GRAVITY 1.015; UROBILINOGEN,URINE NEGATIVE mg/dL (<2.0)
--- NOTE | 2020-01-13 21:36 | ER Document Report ---
ED GI/ - General Chief Complaint: Abdominal Pain Stated Complaint: ABDOMINAL PAIN/ Time Seen by Provider: 01/13/20 20:41 Primary Care Provider: LUIZA THOMAS CNM [CERTIFIED NURSE CNC FIELD SERVICE ENGINEER] - Follow up as needed Notes: Patient is a 24-year-old female that comes to the emergency department for chief complaint of left lower abdominal/pelvic pain. She is G5, P2 at 6 weeks gestation by last menstrual period, she has not had an ultrasound for this yet. She states pain is intermittently sharp and started yesterday. She denies vaginal bleeding or discharge, dysuria, flank pain. She reports nausea with but denies vomiting. She does have past medical history including cholecystectomy, appendectomy, and perforation after appendectomy leading to partial bowel resection. She also reports a history of anemia. TRAVEL OUTSIDE OF THE [place] IN LAST 30 DAYS: No - Related Data Allergies/Adverse Reactions: hydromorphone HCl [From Dilaudid] Allergy (Verified 01/13/20 20:28) difficulty breathing and rash Past Medical History - General Information source: Patient, Relative - Social History Smoking Status: Never Smoker Chew tobacco use (# tins/day): No Frequency of alcohol use: None Drug Abuse: None Lives with: Family Family History: Reviewed & Not Pertinent, Other - Colon cancer Patient has suicidal ideation: No Patient has homicidal ideation: No - Past Medical History Cardiac Medical History: Pulmonary Medical History: Neurological Medical History: Renal/ Medical History: Denies: Hx Peritoneal Dialysis GI Medical History: Reports: Hx Gastroesophageal Reflux Disease Traumatic Medical History: Reports: Hx Fractures Infectious Medical History: Past Surgical History: Reports: Hx Abdominal Surgery - reconstructive intestinal surgery, Hx Appendectomy, Hx Bowel Surgery - colectomy after appendectomy, Hx Cholecystectomy, Other - Exploratory laparotomy, control of appendiceal stump leak 2000. - Immunizations Immunizations up to date: Yes Hx Diphtheria, Pertussis, Tetanus Vaccination: Yes Review of Systems - Review of Systems Constitutional: No symptoms reported EENT: No symptoms reported Cardiovascular: No symptoms reported Respiratory: No symptoms reported Gastrointestinal: See HPI Genitourinary: No symptoms reported Female Genitourinary: See HPI Musculoskeletal: No symptoms reported Skin: No symptoms reported Hematologic/Lymphatic: No symptoms reported Neurological/Psychological: No symptoms reported Physical Exam - Vital signs Vitals: Temp Pulse Resp BP Pulse Ox 97.8 F 75 18 150/88 H 100 0220/20 20:20 01/13/20 20:20 01/13/20 20:20 01/13/20 20:20 01/13/20 20:20 - Notes Notes: GENERAL: Alert, interacts well. Patient appears mildly uncomfortable, holding an emesis bag HEAD: Normocephalic, atraumatic. EYES: Pupils equal, round, and reactive to light. Extraocular movements intact. ENT: Oral mucosa moist, tongue midline. Oropharynx unremarkable. Airway patent. LUNGS: Clear to auscultation bilaterally, no wheezes, rales, or rhonchi. No respiratory distress. HEART: Regular rate and rhythm. No murmur ABDOMEN: Somewhat obese abdomen but no overt tenderness, no distention, no concerning findings noted. Bowel sounds are present. GENITOURINARY: Deferred EXTREMITIES: Moves all 4 extremities spontaneously. No edema, normal radial and dorsalis pedis pulses bilaterally. No cyanosis. BACK: no cervical, thoracic, lumbar midline tenderness. No saddle anesthesia, normal distal neurovascular exam. Moves all extremities in full range of motion. NEUROLOGICAL: Alert and oriented x3. Normal speech. Cranial nerves II through XII grossly intact. PSYCH: Normal affect, normal mood. SKIN: Warm, dry, normal turgor. No rashes or lesions noted. Course - Re-evaluation Re-evalutation: Patient initially somewhat uncomfortable in appearance holding an emesis bag on initial evaluation. Her abdomen is soft and benign however. She is well- appearing otherwise. She is slightly hypertensive but after treatment with Reglan, Tylenol, and reevaluation she is much improved in appearance, blood pressure is much improved on reevaluation. CBC unremarkable with no anemia. hCG is elevated as expected, RhoGam is indicated with a negative blood type. Urinalysis nonspecific. Ultrasound does show a living intrauterine with small subchorionic hemorrhage. Because of this patient was given RhoGam. There is also a small cyst but no concerning findings or signs of torsion. Discussed findings with patient, provided her with a copy of her report, discussed pelvic rest and recommendations, discussed return precautions. Patient and significant other at bedside state understanding and agreement. Stable at time of discharge. - Vital Signs Vital signs: Temp Pulse Resp BP Pulse Ox 98.2 F 74 17 128/67 H 98 01/14/20 00:23 01/14/20 00:23 01/14/20 00:23 01/14/20 00:23 01/14/20 00:23 - Laboratory Result Diagrams: 01/13/20 20:48 Laboratory results interpreted by me: 01/13/20 01/13/20 20:48 20:48 Beta HCG, Quant 09089.00 H Leukocyte Esterase Rfl TRACE H Discharge - Discharge Clinical Impression: Abdominal cramping affecting Condition: Stable Disposition: HOME, SELF-CARE Additional Instructions: Your ultrasound shows a living in the uterus at 6 weeks and 2 days. There is also a small subchorionic hemorrhage and a small cyst on the left side as we discussed. These should simply resolve with time. I recommend pelvic rest, avoid lifting, jumping, running, sexual intercourse, or any significant activity for the next several days to a week or until cleared by TIMBER SURVEYOR. Take Tylenol as needed for pain, take nausea medication as prescribed if needed. Return if you worsen including severe worsening pain, uncontrolled vomiting, fever, heavy bleeding, dizziness, passing out or any other concerning symptoms. Prescriptions: Metoclopramide HCl [Reglan] 5 mg PO ASDIR PRN #30 tablet PRN Reason: Referrals: LUIZA THOMAS CNM [CERTIFIED NURSE CNC FIELD SERVICE ENGINEER] - Follow up as needed
[2020-01-13 21:49] LABS: ABSOLUTE EOSINOPHILS # (AUTO) 0.1 10^3/uL (0.0-0.6); ABSOLUTE LYMPHOCYTES (AUTO) 3.2 10^3/uL (0.5-4.7); ABSOLUTE MONOCYTES (AUTO) 0.6 10^3/uL (0.1-1.4); ABSOLUTE NEUT (AUTO) 4.3 10^3/uL (1.7-8.2); BASOPHILS % (AUTO) 0.4 % (0-2); EOSINOPHILS % (AUTO) 1.2 % (0-6); HEMATOCRIT 36.4 % (36.0-47.0); HEMOGLOBIN 12.2 g/dL (12.0-15.5); LYMPHOCYTES % (AUTO) 38.9 % (13-45); MEAN CORPUSCULAR HEMOGLOBIN 28.9 pg (27.0-33.4); MEAN CORPUSCULAR HGB CONC 33.6 g/dL (32.0-36.0); MEAN CORPUSCULAR VOLUME 86 fl (80-97); MONOCYTES % (AUTO) 7.3 % (3-13); PLATELET COUNT 285 10^3/uL (150-450); RED BLOOD COUNT 4.23 10^6/uL (3.72-5.28); RED CELL DISTRIBUTION WIDTH 13.7 % (11.5-14.0); SEGMENTED NEUTROPHILS % (AUTO) 52.2 % (42-78); TOTAL CELLS COUNTED % (AUTO) 100 %; WHITE BLOOD COUNT 8.2 10^3/uL (4.0-10.5)
--- NOTE | 2020-01-13 23:43 | RADIOLOGY REPORT (SQ) ---
EXAM DESCRIPTION: US TRANSVAGINAL COMPLETED DATE/TME: 01/13/2020 20:44 CLINICAL HISTORY: 24 years, Female, severe left lower pelvic pain, approx 6wks preg COMPARISON: None. TECHNIQUE: Emergent OB ultrasound LIMITATIONS: None. FINDINGS: The uterus measures 8.8 x 4.9 x 7.2 cm. The myometrium is homogenous. There is an intrauterine gestational sac with yolk sac and pole. Heart tones obtained at 175 bpm. Current ultrasound age is 6 weeks 2 days. There is a small 2.5 x 1.7 cm area of diminished echogenicity adjacent to the gestational sac which could reflect small subchorionic hemorrhage. The right ovary measures 2.9 x 1.6 x 2.1 cm, the left 2.9 x 2.3 x 2.0 cm. Normal flow to each ovary. Probable corpus luteal cyst of the left ovary measuring 1.8 x 2.5 cm. Trace free fluid IMPRESSION: Single, live IUP as above. Possible small subchorionic hemorrhage. Close obstetric follow-up recommended. Trace of free fluid. Probable corpus luteal cyst of the left ovary copyright 2010 [employer]- All Rights Reserved
[2020-01-14 00:24] VITALS: BP 128/67
== END 2020-01-14 00:23 | disposition home or self-care (01) ==
LOC: ER 20:15
DX: O26.891 Other specified pregnancy related conditions, first trimester (principal); R10.30 Lower abdominal pain, unspecified; R10.2 Pelvic and perineal pain; R11.0 Nausea; Z3A.01 Less than 8 weeks gestation of pregnancy; Z90.49 Acquired absence of other specified parts of digestive tract; Z88.8 Allergy status to other drugs, medicaments and biological substances
CPT/HCPCS: 99284; 96372; 86900; 86901; 36415; 86850; 84702; 85025; 81001; 76817; 93976; J2790